=== PATIENT | male | born 2000 | race Caucasian/White ===

== ENCOUNTER 2023-09-24 14:23 | Outpatient (AMB) | payer BC, SELFPAY ==
--- NOTE | 2023-09-24 14:26 | MHC.OFFWIV ---
Intake Vital Signs 09/24/23 14:32 Height 5 ft 11 in Weight 150 lb BMI 20.9 BP 122/76 Blood Pressure Location Rt brachial Position Sitting Pulse 78 Pulse Source Pulse Oximeter Temp 98.6 F Temp Source Oral Pulse Oximetry (%) 98 Intake Visit Reasons: [employer] Cough, Headache Intake Note: pt is here for cough and headache Patient Tobacco Use Status: Never used Tobacco Allergies No Known Allergies [No Known Allergies*] Allergy (Verified 09/24/23 14:29) Do you need a note to return to daycare/school/sports/work: Yes HPI HPI Comments History of Present Illness Details Patient is a 23-year-old male with no significant past medical history complaining 2 days of a dry cough and a headache. He states his co-worker tested positive for COVID yesterday and his dad tested positive for COVID on Sunday. He states he tested himself at home and he was positive for COVID but he wants a confirmatory test because he has a work democrat on Sunday. He denies any fevers, nausea vomiting or diarrhea. [facility] Social History Patient Tobacco Use Status: Never used Tobacco Review of Systems Const All systems reviewed & are unremarkable except as noted in HPI and below Physical Exam Vital Signs: Last Vital Signs Temp 98.6 F 09/24/23 14:32 Pulse 78 09/24/23 14:32 BP 122/76 09/24/23 14:32 Pulse Ox 98 09/24/23 14:32 BMI result Body Mass Index 20.9 Const General: cooperative, healthy appearing, comfortable and no acute distress Orientation/consciousness: patient oriented x3 Limitations: no limitations HEENT Head: Yes normal to inspection and Yes normocephalic Ears: external ears normal General nose exam: Normal external nose present, Normal nares present and No nasal discharge present Face and sinus: Yes normal facial exam and Yes sinuses nontender Mouth: Normal oral and palatal mucosa present and moist mucous membranes Throat: Yes tonsils normal, Yes uvula midline and Yes posterior oropharynx abnormal (Erythematous) Eyes General: appearance normal, both eyes and all related structures Neck Neck: Yes normal visual inspection Resp Effort & Inspection: normal respiratory effort, able to speak in complete sentences, Actively coughing, no respiratory distress, not tachypneic, no tripod positioning and no use of accessory muscles Auscultation: clear to auscultation bilaterally Cardio Rate: regular rate Rhythm: regular rhythm Heart sounds: normal S1 and S2 Skin General skin exam: no rashes or lesions noted Neuro General: patient oriented x3 Extrem General: Yes normal to inspection and Yes no clubbing, cyanosis or edema Assessment & Plan Assessment & Plan (1) URI (upper respiratory infection): Code(s): J06.9 - Acute upper respiratory infection, unspecified Qualifiers: URI type: unspecified viral URI Qualified Code(s): J06.9 - Acute upper respiratory infection, unspecified Plan: Sent Flu/Covid/RSV, gave COVID recommendations for isolation. Recommended [id number] medications to treat symptoms. Follow-up with PCP if no resolution in symptoms Plan See above Orders: Orders SARS-CoV2/FLU/RSV Today J06.9 - Acute upper respiratory infection, unspecified Coding Level of Care Code New Pt Level 3 (19059) Diagnoses Viral upper respiratory tract infection J06.9 URI type: unspecified viral URI
[2023-09-24 14:32] VITALS: BP 122/76; PULSE 78; TEMP 37; O2SAT 98; BMI 20.9
== END 2023-09-24 14:55 | disposition home or self-care (01) ==
PROVIDERS: PCP Pediatrics; Visit Provider Physician Assistant
DX: U07.1 COVID-19 (principal)
CPT/HCPCS: 99203

== ENCOUNTER 2023-09-24 14:43 | Outpatient (REF) | payer BC, SELFPAY ==
[2023-09-24 18:05] LABS: Influenza A PCR NEGATIVE (Negative); Influenza B PCR NEGATIVE (Negative); Resp Syncy Virus RNA Qual PCR NEGATIVE (Negative); SARS COV2 PCR INHOUSE POSITIVE (Negative)
== END 2023-09-24 14:44 | disposition home or self-care (01) ==
LOC: HO.LAB 14:43
PROVIDERS: Visit Provider Physician Assistant
DX: J06.9 Acute upper respiratory infection, unspecified (principal)
CPT/HCPCS: 0241U

== ENCOUNTER 2024-11-15 19:02 | Emergency (ER) | payer OTHER, SELFPAY ==
--- NOTE | ~2024-11-15 | XR_ITS ---
CLINICAL HISTORY: chest pain Two views of the chest. COMPARISON: None provided. FINDINGS: Normal heart and mediastinal contours. No consolidation. No pleural effusion or pneumothorax. No acute fracture. IMPRESSION: 1. No consolidation. This document has been electronically signed by: Moshe Villareal MD on 11/15/2024 19:59:57
--- NOTE | 2024-11-15 19:04 | ECG_ITS ---
Test Reason : CP Blood Pressure : */* mmHG Vent. Rate : 62 BPM Atrial Rate : 62 BPM P-R Int : 156 ms QRS Dur : 106 ms QT Int : 368 ms P-R-T Axes : 54 23 67 degrees QTcB Int : 373 ms Normal sinus rhythm Normal ECG No previous ECGs available Referred By: Janet Harris Electronically Signed By: PADMAJA DIAZ MD
--- NOTE | 2024-11-15 19:21 | ED.CHESTPAIN ---
HPI - Chest Pain General Chief Complaint: Chest Pain Stated Complaint: chest pain,sob Time Seen by Provider: 11/15/24 21:01 History of Present Illness ED Provider: Wilmer Giron MD HPI narrative: This is a 24-year-old male with acute on chronic right upper chest pain that is mildly pleuritic he says he has had this for many years but since this morning it persisted which was slightly unusual for him. No cough, hemoptysis or URI symptoms. Denies history of DVT or PE or any recent obvious musculoskeletal injuries. No dyspnea on exertion or any exertional chest discomfort no left-sided or classical anginal type pain. He smokes marijuana no drugs no alcohol no regular medications or hormones. Related Data Home Medications ?Medication ?Instructions ?Recorded ?Confirmed bupropion HCl 150 mg 24 hr tablet, 150 mg PO QAM 09/24/23 extended release fluticasone propionate 50 intranasal 09/24/23 mcg/actuation nasal spray,suspension hydroxyzine pamoate 25 mg capsule 25 mg PO TID 09/24/23 naproxen 500 mg tablet 500 mg PO BID 09/24/23 Allergies Allergy/AdvReac Type Severity Reaction Status Date / Time No Known Allergies (No Known Allergy Verified 11/15/24 19:25 Allergies*) [facility] Social History Social History Patient Tobacco Use Status: Never used Tobacco Advance Directives: No Advance Directives Information Provided: No Physical Exam Exam: Exam: EXAM: Gen: Alert, awake, well appearing, well hydrated. Head: Atraumatic Eyes: Anicteric, Normal conjunctiva. ENT: Moist mucosa, no pallor. ? Neck: Supple. Skin: ?No observable rash or bruising on exposed or examined skin Respiratory: Breathing comfortably, No distress.Clear to auscultation bilaterally, symmetric chest expansion, No wheeze, rales, ronchi. Cardiovascular: Regular rate and rhythm. No murmurs or rub. Well perfused periphery, warm extremities. No edema. ?Mild chest wall tenderness right superior pectoral region no bruising or crepitus Abdominal: No focal tenderness. Soft, no objective distension. No palpable masses or obvious organomegaly. ?No guarding, no rebound tenderness or other peritoneal findings. : No flank tenderness. Neuro: Alert. Gross movement of all extremities intact. ? Psych: Calm. Cooperative. MSK: No grossly visible deformity. Vital signs: See flowsheet Vital Signs: Vital Signs: Last Vital Signs Temp 97.5 F 11/15/24 21:59 Pulse 58 11/15/24 21:59 Resp 16 11/15/24 21:59 BP 121/66 11/15/24 21:59 Pulse Ox 100 11/15/24 21:59 O2 Del Method Room Air 11/15/24 21:59 BMI result Body Mass Index 23.6 Course Course Course Narrative: This is an RME performed by Abrahan Harris CNP: Additional HPI, ROS, PE not included below will be deferred to primary provider. Patient is a 24 year old male who presents for chest pain, constant all day today, with varying intensity, something is sitting on it to the right anterior chest, associated shortness of breath, pain with inspiration. Denies nausea, dizziness, cough.Admits to having pain in past as well, didnt previously seek evaluation. Plan: CXR, viral serologies, ECG Medical Decision Making Medical Decision Making MDM Narrative: Medical Decision Making: Healthy 24-year-old male with chronic right anterior chest discomfort mildly pleuritic in nature. No injury no crepitus no hypoxia or vital sign abnormality in the ED. suspect musculoskeletal etiology. Reassuring ECG and chest x-ray. No personal or family cardiac disease. Patient is young and otherwise healthy low risk. Heart score less than 4 doubt ACS. PE considered however patient has no tachycardia, hypoxia, clinical signs of DVT and I doubt this. Preliminary Favored Differential Diagnosis: Musculoskeletal pain, chronic pleuritis or intercostal strain or costochondritis. Unlikely PE, unlikely pericarditis, unlikely coronaries syndrome among additional considered etiologies Testing Interpreted Independently: EKG: Sinus rhythm rate 62 QTC 373, ND 156. No acute ischemic changes. V2 V3 concave upward ST elevations not suggestive of acute ischemia Radiology or Lab testing Results Reviewed: X-ray no acute pathology Consults: Not Applicable Independent Historians/External Chart Reviews: Not Applicable Social Determinants of Health Impacting MDM/Planning: Not Applicable Lab Data MDM Lab Attestation statement: I reviewed the patient's lab results. 11/15/24 19:41 11/15/24 19:41 Labs: Lab Results 11/15/24 11/15/24 Range/Units 19:41 19:42 WBC 10.5 (4.8-10.8) X10*3/uL RBC 5.08 (4.60-5.80) X10*6/uL Hgb 15.4 (14.0-18.0) g/dl Hct 43.2 (42.0-52.0) % MCV 85.0 (80.0-98.0) fL MCH 30.3 (27.0-33.0) pg MCHC 35.6 (31.0-36.0) g/dl RDW 11.8 (11.0-16.0) % Plt Count 220 (160-400) X10*3/uL MPV 10.1 (9.4-12.4) fL Immature Gran % (Auto) 0.2 (0.0-0.4) % Neut % (Auto) 60.9 (45-73) % Lymph % (Auto) 24.3 (20-40) % Griggs % (Auto) 10.5 (2-11) % Eos % (Auto) 3.0 (0-4) % Baso % (Auto) 1.1 (0-2) % Lymph # (Auto) 2.6 (1.2-4.9) X10*3/uL Griggs # (Auto) 1.1 (0.1-1.2) X10*3/uL Eos # (Auto) 0.3 (0.0-0.4) X10*3/uL Baso # (Auto) 0.1 (0.0-0.2) X10*3/uL Abs Immat Gran (auto) 0.02 (0.00-0.03) X10*3/uL Absolute Neuts (auto) 6.4 (2.0-8.3) x10*3/uL Absolute Nucleated RBC 0.000 (0.0-0.012) X10*3/uL Nucleated RBC % (auto) 0.0 (0.0-0.2) /100WBC Sodium 142 (135-145) mmol/L Potassium 4.2 (3.3-5.1) mmol/L Chloride 106 (96-108) mmol/L Carbon Dioxide 27 (22-29) mmol/L Anion Gap 13 (12-20) BUN 12 (9-16) mg/dL Creatinine 0.85 (0.5-1.4) mg/dL Estim Creat Clear Calc 135.1 Estimated GFR > 60 Random Glucose 98 (60-115) mg/dL Calcium 9.4 (8.4-10.2) mg/dL Total Bilirubin 0.7 (0.0-1.0) mg/dL AST 21 (5-37) U/L ALT 26 (0-40) U/L Alkaline Phosphatase 71 (39-117) U/L Troponin I High Sens < 2.7 (<3.5-35.0) ng/L Total Protein 7.7 (6.5-8.0) g/dL Albumin 5.0 (3.5-5.0) g/dL Influenza Type A (PCR) NEGATIVE (Negative) Influenza Type B (PCR) NEGATIVE (Negative) RSV RNA Qual (PCR) NEGATIVE (Negative) SARS-CoV-2 RNA (RT-PCR) NEGATIVE (Negative) Discharge Plan Discharge Clinical Impression: Atypical chest pain Patient Disposition: Home, Self-Care Instructions: Chest Pain (DC) Additional Instructions: DISCHARGE DIAGNOSES: Chronic right-sided pleuritic chest pain probably musculoskeletal no definitive diagnosis. Reassuring workup in the emergency department HISTORY OF PRESENTATION: ?Acute on chronic right upper chest discomfort with deep breathing EMERGENCY DEPARTMENT COURSE,TESTS, TREATMENTS: While in the ED today you had an EKG, chest x-ray lab work including troponin cardiac enzyme all of which was normal and reassuring DISCHARGE MEDICATIONS: ?[We have made no changes to your regular medication regimen] FOLLOW-UP: ?Call your primary or general physician soon as possible to discuss your symptoms, your ED visit and to discuss follow up plans You can try ibuprofen or topical treatments such as diclofenac gel which you can get [id number] applied to the right chest wall. Call your primary doctor for follow up to discuss the chronic symptoms here having INSTRUCTIONS ?& RETURN PRECAUTIONS: If any symptoms change first call your primary physician, if it is after-hours your primary doctors office should have a provider software application tester you can speak with. If the symptoms are severe or very concerning to you then call 911 or return to the ED. Return here if you have severe worsening pain difficulty breathing passing out leg swelling coughing blood Wilmer Giron MD Emergency Physician [facility] Prescriptions: No Action bupropion HCl 150 mg tablet extended release 24 hr 150 mg PO QAM hydroxyzine pamoate 25 mg capsule 25 mg PO TID naproxen 500 mg tablet 500 mg PO BID fluticasone propionate 50 mcg/actuation spray,suspension intranasal Interventions: ED Discharge Assessment Last Done: 11/15/24 21:59 Discharge Date/Time: 11/15/24 21:59 Print Language: Syriac
[2024-11-15 19:25] VITALS: BP 139/83; PULSE 59; RESP 16; TEMP 36.7; O2SAT 99; BMI 23.6
[2024-11-15 19:45] LABS: MANUAL DIFF FLAG NO
[2024-11-15 19:47] LABS: Hematocrit 43.2 % (42.0-52.0); Hemoglobin 15.4 g/dl (14.0-18.0); Imm Gran Abs Auto 0.02 X10*3/uL (0.00-0.03); Imm Gran Pct Auto 0.2 % (0.0-0.4); Lymphocytes Absolute Auto 2.6 X10*3/uL (1.2-4.9); Mean Corpuscular HGB Conc 35.6 g/dl (31.0-36.0); Mean Corpuscular Hemoglobin 30.3 pg (27.0-33.0); Mean Corpuscular Volume 85.0 fL (80.0-98.0); NRBC Abs Auto 0.000 X10*3/uL (0.0-0.012); NRBC Pct Auto 0.0 /100WBC (0.0-0.2); Platelet Count 220 X10*3/uL (160-400); Red Blood Count 5.08 X10*6/uL (4.60-5.80); White Blood Count 10.5 X10*3/uL (4.8-10.8)
[2024-11-15 20:01] LABS: Alanine Aminotransferase 26 U/L (0-40); Albumin Level 5.0 g/dL (3.5-5.0); Alkaline Phosphatase 71 U/L (39-117); Anion Gap 13 (12-20); Aspartate Amino Transferase 21 U/L (5-37); Blood Urea Nitrogen 12 mg/dL (9-16); Calcium 9.4 mg/dL (8.4-10.2); Carbon Dioxide 27 mmol/L (22-29); Chloride 106 mmol/L (96-108); Creatinine Clr Calc Pharmacy 135.1; Estimated Glomerular Filt Rate > 60; Potassium 4.2 mmol/L (3.3-5.1); Sodium 142 mmol/L (135-145); Total Protein 7.7 g/dL (6.5-8.0)
[2024-11-15 20:09] LABS: Troponin-I High Sensitivity < 2.7 ng/L (<3.5-35.0)
[2024-11-15 20:23] LABS: Resp Syncy Virus RNA Qual PCR NEGATIVE (Negative); SARS COV2 PCR INHOUSE NEGATIVE (Negative)
[2024-11-15 21:04] VITALS: BP 121/66; PULSE 58; RESP 16; TEMP 36.4; O2SAT 100
--- OUTSIDE RECORDS SUMMARY | 2024-11-15 21:09 | XMS_ITS | Patient Health Record ---
[facility] Address [address] [place] [address] Care Team Providers Care Environmental Studies Professor Name Role Phone Clinton RAZA, Eder Primary Care Provider Diana Vera Unavailable [phone] Reason For Referral No Information Problems No Known Problems Plan Of Treatment No Information Insurance Providers Payer Name Payer Address Payer Phone Subscriber Number Group Number Insured Name Patient Relationship to Insured Coverage Start Date Coverage End Date [facility] [employer] [address] [place] [address] [phone] [id number] Madisyn Danielle Natural Child - Insured has Financial Responsibility Medical (General) History Medical History History ICD Code Warts
--- OUTSIDE RECORDS SUMMARY | 2024-11-15 21:09 | XMS_ITS ---
Author Name [facility] Organization Unknown Care Team Organization Name Specialty Phone Email Start Date End Da te [facility] Marc Sanchez Primary Care 06/21/202211/14 [facility] Kim Woodward Primary Care 02/21/20222023
--- NOTE | 2024-11-15 21:56 | PC.NURSE ---
1 minute after MD walked away from pt after exam, pt demanded discharge paperwork. t/w told pt he needs a few minutes to get it written up. pt then walked out of ED prior to d/c paperwork being up. pt walked up to the computer help desk specialist requesting his paperwork. papers given to pt.
[2024-11-15 21:59] VITALS: BP 121/66; PULSE 58; RESP 16; TEMP 36.4; O2SAT 100
== END 2024-11-15 21:59 | disposition home or self-care (01) ==
PROVIDERS: Nurse Practitioner Family; Emergency Provider Emergency Medicine
DX: R07.9 Chest pain, unspecified (principal); R06.02 Shortness of breath
CPT/HCPCS: 71046; 80053; 84484; 85025; 87637; 93005; 99283; 99284

== ENCOUNTER → 2024-11-15 19:04 | Outpatient (BNV) | payer SELFPAY | PROVIDERS: Emergency Provider Emergency Medicine; Visit Provider Internal Medicine Cardiovascular Disease | DX: R07.89 Other chest pain (principal) | CPT/HCPCS: 93010 ==

== ENCOUNTER → 2024-11-15 19:25 | Outpatient (BNV) | payer BC, SELFPAY | PROVIDERS: Visit Provider Radiology Diagnostic Radiology | DX: R07.9 Chest pain, unspecified (principal) | CPT/HCPCS: 71046 ==